=== PATIENT | male | born 1965 | race Caucasian/White ===

== ENCOUNTER 2024-05-22 06:05 | Emergency (ER) | payer MEDICAID ==
[~2024-05-22] VITALS: Ht 172.7 cm; Wt 79.5 kg
[2024-05-22] MEDS: bacitracin 15gm ointment TP ONE (07:14)
[2024-05-22 07:34] VITALS: BP 115/84; PULSE 75; RESP 20; TEMP 97.5; O2SAT 100
== END 2024-05-22 07:30 | disposition home or self-care (01) ==
LOC: ER 06:05
DX: S61.212A Laceration without foreign body of right middle finger without damage to nail, initial encounter (principal); S61.214A Laceration without foreign body of right ring finger without damage to nail, initial encounter; X58.XXXA Exposure to other specified factors, initial encounter; Y93.89 Activity, other specified; Y92.89 Other specified places as the place of occurrence of the external cause; Y99.8 Other external cause status
CPT/HCPCS: 12002; 99283; A6258